=== PATIENT | male | born 1995 | race Caucasian/White ===

== ENCOUNTER 2017-01-23 08:00 | Inpatient (IN) | payer BC, OTHER ==
[~2017-01-23] VITALS: Ht 182.9 cm; Wt 72.6 kg
[2017-01-23 08:00] VITALS: BP 145/89
--- NOTE | 2017-01-23 08:00 | NUR ---
INTAKE ASSESSMENT Patient is 21 year old male admitted for BENZO dependence. Patient is alert oriented x4. Patient appears anxious intoxicated, nauseated, Vomited x3, unable to sit still, agitated. Patient denies any history of seizure. Patient reported PMH of anxiety, depression. He denies any family PMH or family history of drug abuse. Educated patient regarding unit protocols and policies, patient verbalized understanding. Will continue with further assessment when patient is up on the unit.
--- NOTE | 2017-01-23 08:27 | NUR ---
ADMISSION NOTE Allergy- SHRIMP Status-Full code Height 6'0" Weight-160 lb PCP-DR. Aguilar Vital Signs- B/P-145/89,HR-70, R-18, TEMP-97.9, SPO2-98%, Pain 0/10 CIWA-9 Patient is a 21 year old male admitted to [facility] to detox center for BENZO dependence under the care of Dr. Guzmán. Patient unable to provide urine at this time. Thorough body and belonging check done by DOWEL SETTING MACHINE OPERATOR. Patient appears anxious and agitated, crying, nauseated, vomiting x2. Patient is cooperative during nursing assessment. Upon admission patient is noted to have a flat affect, appears intoxicated, but cooperative with the admission process. Patient denies chest pain or SOB. Lung sounds clear with no cough noted. Bowel sounds present in all 4 quadrants. BUE and BLE noted WNL with no edema present. Skin check done with no significant findings. Pt reported PMH of anxiety and depression. Pt refused PNA/FLU vaccine. He brought in home medications. Patient denies SI/HI. Pt is AOx4. This is his first time in treatment. Patient reports never having a period of sobriety since he started using drugs. Pt's current s/s of withdrawal are N/V/D, chills, body aches, anxiety, agitation, shakes, hot and cold flashes, inability to sit still. Patient observed to be pacing in the hallways. Patient reported substance abuse history as: 1.XANAX-Pt reported taking Xanax 8mg PO daily for past 3 years. Last used 4mg PO on 01/22/17 at 2200. 2.Marijuana- Patient reported smoking marijuana 1/8 ounce daily for the past 5 years.Last used 1GM 01/23/17 at 0700 prior to admission. Educated patient regarding unit policies and protocols, patient verbalized understanding. Patient oriented to unit by DOWEL SETTING MACHINE OPERATOR. Fall and seizure precautions in place. Safety measures in place, Call light within reach. Will cont to monitor.
[2017-01-23] MEDS ORDERED: MAG HYDROX/AL HYDROX/SIMETH 30 ML LIQUID UDC PO PRN (08:45)
[2017-01-23] MEDS ORDERED: DICYCLOMINE HCL 20 MG TABLET PO PRN (08:45)
[2017-01-23] MEDS ORDERED: THIAMINE HCL 200 MG/2 ML VIAL IM ONE (08:45)
[2017-01-23] MEDS ORDERED: IBUPROFEN 600 MG TABLET PO PRN (08:45)
[2017-01-23] MEDS ORDERED: MIRALAX 17 GM POWD.PACK PO PRN (08:45)
[2017-01-23] MEDS ORDERED: LOPERAMIDE HCL 2 MG CAPSULE PO PRN ×2 (08:45)
[2017-01-23] MEDS ORDERED: MAGNESIUM HYDROXIDE 30 ML LIQUID UDC PO PRN (08:45)
[2017-01-23] MEDS ORDERED: IV NS 1000 ML 1,000 ML IV PRN (08:45)
[2017-01-23] MEDS ORDERED: CLONIDINE HCL 0.1 MG TABLET PO PRN (08:45)
[2017-01-23] MEDS ORDERED: LORAZEPAM 1 MG TABLET PO PRN (08:45)
[2017-01-23] MEDS ORDERED: FOLIC ACID 1 MG TABLET PO SCH (09:00)
[2017-01-23] MEDS ORDERED: THIAMINE HCL 100 MG TABLET PO SCH (09:00)
[2017-01-23] MEDS ORDERED: MULTIVITAMINS,THERAPEUTIC TABLET PO SCH (09:00)
[2017-01-23] MEDS ORDERED: LORAZEPAM 1 MG TABLET PO SCH (09:00)
[2017-01-23] MEDS: ONDANSETRON 4 MG/2 ML VIAL IV PRN ×3 (09:11→22:30)
--- NOTE | 2017-01-23 09:14 | NUR ---
Iv Zofran 4mg IVP given for nausea
--- NOTE | 2017-01-23 09:14 | NUR ---
#22g IV started right forearm NS @ 125cc/hr via pump started. IV patent and running well
--- NOTE | 2017-01-23 09:15 | NUR ---
Pt still with N+V after Zofran IV
[2017-01-23] MEDS ORDERED: OLAN15TA3 PO (09:35)
[2017-01-23] MEDS ORDERED: GABA-534 PO (09:35)
[2017-01-23] MEDS ORDERED: QUET25TA PO (09:35)
[2017-01-23] MEDS ORDERED: FAMO20TA41 PO (09:35)
[2017-01-23] MEDS ORDERED: ONDA4TAB11 PO (09:35)
[2017-01-23] MEDS ORDERED: DIPH1TAB PO (09:35)
[2017-01-23] MEDS ORDERED: PANT40TA4 PO (09:35)
[2017-01-23] MEDS ORDERED: FLUO-119 PO (09:35)
[2017-01-23 09:39] LABS: BASOPHILS # (AUTO) 0.1 K/uL (0.0-8.0); BASOPHILS % (AUTO) 0.4 % (0.0-2.0); EOSINOPHILS % (AUTO) 0.3 % (0.0-7.0); HEMOGLOBIN 14.7 g/dL (12.5-16.3); LYMPHOCYTES # (AUTO) 1.1 K/uL (20.0-40.0); LYMPHOCYTES % (AUTO) 8.9 % (20.5-51.5); MEAN CORPUSCULAR HEMOGLOBIN 31.3 uug (23.8-33.4); MEAN CORPUSCULAR HGB CONC 34 g/dL (32.5-36.3); MEAN CORPUSCULAR VOLUME 91.3 fL (73.0-96.2); MONOCYTES # (AUTO) 0.6 K/uL (2.0-10.0); MONOCYTES % (AUTO) 4.9 % (0.0-11.0); NEUTROPHILS # (AUTO) 10.9 K/uL (1.8-8.9); NEUTROPHILS % (AUTO) 85.5 % (38.5-71.5); PLATELET COUNT (AUTO) 184 K/uL (152-348); RED BLOOD CELL COUNT(AUTO) 4.71 MIL/uL (4.06-5.63); WHITE BLOOD COUNT (AUTO) 12.8 K/uL (3.6-10.2)
[2017-01-23 09:54] LABS: ALANINE AMINOTRANSFERASE 8 U/L (16-63); ALKALINE PHOSPHATASE 64 U/L (50-136); ASPARTATE AMINOTRANSFERASE 15 U/L (15-37); BILIRUBIN,TOTAL 0.3 mg/dL (0.2-1.0); CARBON DIOXIDE 25 mmol/L (21-32); CHLORIDE 101 mmol/L (98-107); CREATININE 1.2 mg/dL (0.6-1.3); GLUCOSE 174 mg/dL (74-106); MAGNESIUM 1.6 mg/dL (1.8-2.4); TOTAL PROTEIN, SERUM 7.2 g/dL (6.4-8.2); UREA NITROGEN, BLOOD 9 mg/dL (7-18)
[2017-01-23 09:58] LABS: ETHANOL < 3 MG/DL (0-0)
--- NOTE | 2017-01-23 11:41 | NUR ---
ONE TIME ZOFRAN 4MG IM Patient reported nausea and observed with vomiting, MD notified. Received new one time order to give Zofran 4mg IM x1. Medication given as ordered. Will cont to monitor and reassess.
[2017-01-23] MEDS ORDERED: ONDANSETRON 4 MG/2 ML VIAL IM ONE (11:45)
[2017-01-23] MEDS: ACETAMINOPHEN 325 MG TABLET PO PRN (11:47)
--- NOTE | 2017-01-23 11:47 | NUR ---
PRN TYLENOL Patient c/o of abdominal pain 05/15, PRN Tylenol 650mg PO given as ordered. Will cont to monitor and reassess.
[2017-01-23 12:00] VITALS: BP 137/66
[2017-01-23] MEDS ORDERED: METOCLOPRAMIDE HCL 10 MG/2 ML VIAL IV PRN (12:00)
--- NOTE | 2017-01-23 12:10 | NUR ---
ZOFRAN IM REASSESSMENT Patient reported Zofran IM was ineffective, pt still noted with vomiting and nauseated. MD notified.
--- NOTE | 2017-01-23 12:17 | NUR ---
TYLENOL REASSESSMENT Upon reassessment pt reported Tylenol was ineffective.
[2017-01-23] MEDS: LORAZEPAM 2 MG/1 ML VIAL IV SCH ×3 (12:24→20:10)
--- NOTE | 2017-01-23 12:30 | NUR ---
Ativan 2mg IVP for anxiety and Reglan 10mg IVP given for persistent vomiting
--- NOTE | 2017-01-23 13:17 | NUR ---
PRN BENTYL PRN Bentyl 20mg PO administered as ordered, pt c/o of abdominal cramps 5/10. Will cont to monitor and reassess.
[2017-01-23] MEDS ORDERED: LORAZEPAM 2 MG/1 ML VIAL IV ONE (13:30)
[2017-01-23] MEDS ORDERED: DICYCLOMINE HCL 20 MG/2 ML AMPUL IM ONE (13:30)
[2017-01-23] MEDS: POTASSIUM CHLORIDE 20 MEQ in IV D5 1/2 NS 1000 ML 1,000 ML IV PRN ×2 (13:49→22:58)
--- NOTE | 2017-01-23 14:00 | NUR ---
IVF changed to D51/2NS w/20MEQ KCL @ 125cc/hr via pump. Ativan 2mg IVP and Bentyl 20mg IM given. Magnesium 1g IVPB started via pump @ 100cc/hr.
[2017-01-23] MEDS: MAGNESIUM SULFATE/D5W 100 ML IV SCH ×2 (14:04→15:01)
[2017-01-23] MEDS ORDERED: PANTOPRAZOLE SODIUM 40 MG VIAL IV ONE (14:15)
--- NOTE | 2017-01-23 14:17 | NUR ---
BENTYL REASSESSMENT Patient reported Bentyl was effective and feeling relief from stomach cramps with pain scale 1/10.
--- NOTE | 2017-01-23 14:28 | NUR ---
Protonix 40mg IVP X1 administered.
[2017-01-23] MEDS: GABAPENTIN 300 MG CAPSULE PO SCH ×2 (15:00→20:11)
--- NOTE | 2017-01-23 15:00 | NUR ---
2nd bag of Magnesium 1 gm started via pump @ 100cc/hr
[2017-01-23 16:00] VITALS: BP 134/90
--- NOTE | 2017-01-23 16:00 | NUR ---
Ativan 2mg IVP given
[2017-01-23 16:22] LABS: *AMPHETAMINE, URINE NEGATIVE (NEGATIVE); *BARBITURATE, URINE NEGATIVE (NEGATIVE); *CANNABINOID, URINE POSITIVE (NEGATIVE); *COCCAINE, URINE NEGATIVE (NEGATIVE); *OPIATE, URINE NEGATIVE (NEGATIVE); *PHENCYCLIDINE SCREEN,URINE NEGATIVE (NEGATIVE)
--- NOTE | 2017-01-23 16:30 | NUR ---
PRN Zofran reassessment PRN Zofran reassessment. PRN Zofran effective. No further episodes of vomiting. Nausea is mostly relieved at this time per pt.
--- NOTE | 2017-01-23 16:30 | NUR ---
GEETA Franco Pt c/o nausea with 2 episodes of vomiting. GEETA Franco IV administered. Addendum: 01/23/17 at 1646 by MIGUEL A PALMA RN Incorrect note time. Ingrisan administered at 1558.
[2017-01-23] MEDS ORDERED: KETOROLAC TROMETHAMINE 15 MG INJ IVP ONE (16:45)
[2017-01-23] MEDS ORDERED: PROMETHAZINE HCL INJ 12.5 MG in IV DEXTROSE 5% 50 ML IV ONE (16:45)
[2017-01-23] MEDS ORDERED: CAPSAICIN 0.075% CREAM 60 GM TUBE TOP SCH (17:00)
[2017-01-23] MEDS ORDERED: PROMETHAZINE HCL 25 MG/1 ML VIAL IM ONE (17:00)
--- NOTE | 2017-01-23 17:15 | NUR ---
Toradol 15mg IVP for pain and Phenergan 25mg IM given
[2017-01-23] MEDS: CAPSAICIN 0.025% CREAM 56.6 GM TUBE TOP SCH (17:38)
[2017-01-23] MEDS: LORAZEPAM 1 MG TABLET PO PRN ×2 (18:11→22:57)
--- NOTE | 2017-01-23 18:11 | NUR ---
PRN ATIVAN 1MG PO Patient noted to be pacing back and forth by the nursing station, anxious, agitated. Patient stated having a panic attack PRN Ativan 1mg PO given as ordered. CIWA score noted 12. Will cont to monitor and reassess the pt.
--- NOTE | 2017-01-23 19:05 | NUR ---
END OF SHIFT Report provided to production shift supervisor nurse. Pt is a 21 yo male [facility] at 0800 for BZD dependence. He is A&O and ambulatory. NKA, full code status, clear liquid diet. PMH of abdominal pain, anxiety, and depression. On admission pt reported using Xanax 8mg per day and marijuana. Ativan taper started today. He has a 22 gauge IV to the right FA with IV fluids running as ordered. IV Mg x2 bags ordered. Second bag currently running IVPB. Pt was experiencing anxiety, nausea, vomiting, and abdominal pain throughout the day. Pt received PRN Zofran IM x1, PRN Zofran IV x2, Reglan IV, Phenergan IV,Toradol IV, Bentyl PO, Bentyl IV, Tylenol, and Ativan 2mg IV x2, Ativan 1mg PO. Vital signs WNL. All safety measures in place, Call light within range. Patient endorsed to night nurse in stable condition.
--- NOTE | 2017-01-23 19:11 | NUR ---
ATIVAN REASSESSMENT CIWA score noted 7, patient noted resting in his room, breathing normal. Patient is less anxious and restless. Patient is able to rest in bed.
--- NOTE | 2017-01-23 19:15 | NUR ---
START OF SHIFT Received 21 year old male patient admitted on 01/23/17 for Xanax and Marijuana dependency. Pt is full code with allergy to shrimp. He reports a PMHx of abdominal pain, anxiety and depression. He reports using Xanax 8 mg daily for 3 years. Last dose was 4 mg on 01/22/17 and Marijuana 1/8th oz daily for 5 years. Last dose was 1 gram on 01/23/17. Pt currently receiving 5 day Ativan taper with IV Ativan d/t abdominal pain and nausea. Pt with left arm IV 22 gauge with D5 1/2 NS in 20 meQ KCL @ 125 mL/hr. IV site patent and flowing well. Per endorsement, pt received PRN Zofran IV, Bentyl, Reglan and Toradol. Pt is alert and oriented x4, anxious, restless and agitated. Safety measures in place. Will continue to monitor.
[2017-01-23] MEDS: ONDANSETRON ODT 4 MG TAB.RAPDIS SL PRN (19:55)
--- NOTE | 2017-01-23 19:55 | NUR ---
PRN ZOFRAN Pt complains of nausea with no episode of vomiting. Pt is restless and is noted with facial grimacing. PRN Zofran SL administered as ordered. Will monitor effectiveness.
[2017-01-23 20:00] VITALS: BP 135/77
[2017-01-23] MEDS: QUETIAPINE FUMARATE 25 MG TABLET PO SCH (20:11)
--- NOTE | 2017-01-23 20:55 | NUR ---
PRN ZOFRAN REASSESSMENT PRN medication ineffective. Pt still complains of nausea.
[2017-01-23] MEDS ORDERED: GABAPENTIN 300 MG CAPSULE PO SCH (21:00)
[2017-01-23] MEDS: KETOROLAC TROMETHAMINE 30 MG INJ IM PRN (22:34)
--- NOTE | 2017-01-23 22:34 | NUR ---
PRN ZOFRAN IV/TORADOL IM Pt still complains of nausea unrelieved by Zofran SL. Pt complains of abdominal pain 11/14. PRN Zofran and Toradol administered as ordered. Will monitor effectiveness.
[2017-01-23] MEDS ORDERED: KETOROLAC TROMETHAMINE 30 MG INJ ONE (22:37)
--- NOTE | 2017-01-23 22:57 | NUR ---
PRN ATIVAN Pt noted with dizziness, increased anxiety, agitation and restlessness. CIWA:11. PRN Ativan 1 mg administered as ordered. Will monitor effectiveness.
--- NOTE | 2017-01-23 23:34 | NUR ---
PRN ZOFRAN IV/TORADOL IM REASSESSMENT PRN medications effective. Pt reports abdominal pain decreased to 6/10 and nausea is decreased. Will continue to monitor.
[2017-01-24] VITALS: BP 124/64
[2017-01-24] MEDS: diphenhydrAMINE 50 MG CAPSULE PO PRN ×2 (00:46→21:54)
--- NOTE | 2017-01-24 00:46 | NUR ---
PRN BENADRYL Pt complains of insomnia and inability to sleep. Pt noted to be pacing hallway. PRN Benadryl administered as ordered. Will monitor effectiveness.
--- NOTE | 2017-01-24 01:46 | NUR ---
PRN BENADRYL REASSESSMENT PRN medication ineffective. Pt still awake and unable to fall asleep.
[2017-01-24] MEDS: ONDANSETRON ODT 4 MG TAB.RAPDIS SL PRN ×2 (02:05→16:36)
--- NOTE | 2017-01-24 02:05 | NUR ---
PRN ZOFRAN SL Pt complains of nausea with no episode of vomiting. PRN Zofran SL administered as ordered. Will monitor effectiveness.
--- NOTE | 2017-01-24 03:05 | NUR ---
PRN ZOFRAN REASSESSMENT PRN medication somewhat effective. Pt still reports nausea but reports " I feel a little better"
[2017-01-24 04:00] VITALS: BP 121/72
[2017-01-24] MEDS: LORAZEPAM 1 MG TABLET PO PRN (04:14)
--- NOTE | 2017-01-24 04:14 | NUR ---
PRN ATIVAN Pt is restless, anxious and agitated. Noted to be pacing the hallway unable to sleep d/t anxiety. CIWA:8. PRN Ativan 1 mg administered as ordered. Will monitor effectiveness.
--- NOTE | 2017-01-24 05:14 | NUR ---
PRN ATIVAN REASSESSMENT PRN medication ineffective. Pt still complains of anxiety and restlessness. Will continue to monitor.
[2017-01-24] MEDS: ACETAMINOPHEN 325 MG TABLET PO PRN (06:02)
--- NOTE | 2017-01-24 06:02 | NUR ---
PRN TYLENOL Pt complains of abdominal pain 09/14. PRN Tylenol administered as ordered. Will monitor effectiveness.
[2017-01-24 06:06] LABS: HEPATITIS B SURFACE AG Negative (Negative)
--- NOTE | 2017-01-24 07:02 | NUR ---
PRN TYLENOL REASSESSMENT PRN medication somewhat effective. Pt still complains of abdominal pain 06/14. Will endorse.
--- NOTE | 2017-01-24 07:19 | NUR ---
END OF SHIFT Pt is a 21 year old male patient admitted on 01/23/17 for Xanax and Marijuana dependency. Pt is full code with allergy to shrimp. He reports a PMHx of abdominal pain, anxiety and depression. Pt continues on a 5 day Ativan taper and is scheduled to start Ativan taper PO. Pt with left arm IV 22 gauge with D5 1/2 NS in 20 meQ KCL @ 125 mL/hr, patent and flowing well. He received several PRN medications and had complaints of nausea, abdominal pain, and anxiety. He slept a total of 0 hrs, Intake: 1055mL, Void: x4, BM:0, CIWA:8. Pt remains alert and oriented x4, anxious and restless. Safety measures in place. Endorsed to AM shift.
--- NOTE | 2017-01-24 07:31 | NUR ---
START OF SHIFT Pt 21 y/o male admitted for marijuana/ xanax dependence. Pt received walking around in the hallways. Pt alert and oriented to name, place, and time. Perrla. Skin warm and moist to touch. Respirations even and unlabored. Bilateral hand tremors noted. Pt with peripheral IV on right forearm in place, intact and patent, with no redness and is not hot to touch, and is infusing D5 1/2 NS with K+20 mEq @ 125 mL/hr and is tolerating well. It was reported that pt did not sleep last night and was just walking around the hallways. No distress noted at this time.
[2017-01-24 08:00] VITALS: BP 130/75
[2017-01-24] MEDS: ONDANSETRON 4 MG/2 ML VIAL IV PRN ×3 (08:14→23:22)
[2017-01-24] MEDS: KETOROLAC TROMETHAMINE 30 MG INJ IM PRN ×2 (08:17→23:29)
--- NOTE | 2017-01-24 08:17 | NUR ---
PRN Pt states has abd pain 8/10. Toradol IM prn per MD order given and tolerated well.
--- NOTE | 2017-01-24 08:17 | NUR ---
ZOSTRIX Pt stated the zostrix applied to his abd made his skin turn red in color, but denied any puritis. Bharat was held and aware.
--- NOTE | 2017-01-24 08:17 | NUR ---
PPD Pt refused PPD.
--- NOTE | 2017-01-24 08:17 | NUR ---
PRN Pt states feels very nauseated. Zofran IV prn per MD order given and tolerated well.
[2017-01-24 08:18] LABS: BASOPHILS # (AUTO) 0.1 K/uL (0.0-8.0); BASOPHILS % (AUTO) 0.7 % (0.0-2.0); EOSINOPHILS # (AUTO) 0.2 K/uL (0.0-0.7); EOSINOPHILS % (AUTO) 1.6 % (0.0-7.0); HEMATOCRIT 41.8 % (36.7-47.1); HEMOGLOBIN 14.4 g/dL (12.5-16.3); LYMPHOCYTES # (AUTO) 2.7 K/uL (20.0-40.0); LYMPHOCYTES % (AUTO) 28.6 % (20.5-51.5); MEAN CORPUSCULAR HEMOGLOBIN 31.7 uug (23.8-33.4); MEAN CORPUSCULAR HGB CONC 34 g/dL (32.5-36.3); MEAN CORPUSCULAR VOLUME 92.1 fL (73.0-96.2); MONOCYTES # (AUTO) 1.1 K/uL (2.0-10.0); MONOCYTES % (AUTO) 11.2 % (0.0-11.0); NEUTROPHILS # (AUTO) 5.5 K/uL (1.8-8.9); NEUTROPHILS % (AUTO) 57.9 % (38.5-71.5); PLATELET COUNT (AUTO) 193 K/uL (152-348); RED BLOOD CELL COUNT(AUTO) 4.53 MIL/uL (4.06-5.63); WHITE BLOOD COUNT (AUTO) 9.5 K/uL (3.6-10.2)
[2017-01-24] MEDS: LORAZEPAM 1 MG TABLET PO SCH ×3 (08:28→20:28)
[2017-01-24] MEDS: GABAPENTIN 300 MG CAPSULE PO SCH ×3 (08:28→20:29)
[2017-01-24] MEDS: PANTOPRAZOLE 40MG PO SCH (08:29)
[2017-01-24] MEDS ORDERED: TUBERCULIN,PURIF.PROT.DERIV. 5 TU/0.1 ML TEST ID ONE (09:00)
[2017-01-24] MEDS: CAPSAICIN 0.025% CREAM 56.6 GM TUBE TOP SCH (09:00)
--- NOTE | 2017-01-24 09:17 | NUR ---
PRN OLGA LIDIA Pt states pain 05/15.
--- NOTE | 2017-01-24 09:17 | NUR ---
PRN EVAL Pt states does not feel nauseated at this time.
[2017-01-24 09:34] LABS: PHOSPHOROUS 3.2 mg/dL (2.5-4.9); POTASSIUM 3.7 mmol/L (3.5-5.1)
[2017-01-24 12:00] VITALS: BP 125/76
[2017-01-24] MEDS ORDERED: LORAZEPAM 2 MG/1 ML VIAL IV ONE (12:00)
--- NOTE | 2017-01-24 12:00 | NUR ---
ONE TIME Pt was seen by MD with new order for ativan 2 mg IV x1 dose, noted and carried out. Pt with ciwa=10.
[2017-01-24] MEDS: IV D5 1/2 NS 1000 ML 1,000 ML IV PRN (12:09)
--- NOTE | 2017-01-24 13:00 | NUR ---
ONE TIME EVAL Pt with ciwa=4.
[2017-01-24] MEDS: DICYCLOMINE HCL 20 MG TABLET PO SCH ×2 (14:21→20:30)
--- NOTE | 2017-01-24 14:26 | NUR ---
PRN Pt states feels nauseous. Pt requesting to have zofran IV. Zofran IV prn per MD order given and tolerated well.
--- NOTE | 2017-01-24 14:52 | NUR ---
Therapist prompted client about group times. Client stated he will attend all groups today.
--- NOTE | 2017-01-24 15:26 | NUR ---
PRN EVAL Pt states does not feel nauseated at this time.
[2017-01-24 16:00] VITALS: BP 109/78
--- NOTE | 2017-01-24 16:39 | NUR ---
PRN Pt states feels nauseated. Zofran odt sl prn per MD given and tolerated well.
--- NOTE | 2017-01-24 16:39 | NUR ---
PRN Pt states has heartburn. Maloox po prn per MD order given and tolerated well.
--- NOTE | 2017-01-24 17:39 | NUR ---
PRN EVAL Pt denies any nausea at this time. No reports of vomit episode.
--- NOTE | 2017-01-24 17:39 | NUR ---
GEETA DUGGAN Pt denies any heartburn at this time.
[2017-01-24] MEDS: FLUOXETINE HCL 10 MG CAPSULE PO SCH (18:09)
--- NOTE | 2017-01-24 18:15 | NUR ---
END OF SHIFT Pt 21 y/o male admitted for marijuana/ xanax dependence. Pt alert and oriented to name, place, and time. Perrla. Skin warm and moist to touch. Respirations even and unlabored. Pt with bilateral hand tremors noted slightly. Pt states had 1 vomit episode this morning, unwitnessed. Pt with peripheral IV on right forearm intact and in place, patent, with no redness and is not hot to touch, infusing D5 ns @ 125 mL/ hr and is tolerating well. Pt attended group activity. Pt medication compliant and tolerated well. No ASE noted. Pt was seen by MD today. Bed on lowest position with side rails x2 up for safety. Call light within reach. No distress noted at this time.
[2017-01-24] MEDS: QUETIAPINE FUMARATE 25 MG TABLET PO SCH ×2 (18:23→20:29)
--- NOTE | 2017-01-24 19:15 | NUR ---
START OF SHIFT Received 21 year old male patient admitted on 01/23/17 for Xanax and Marijuana dependency. Pt is full code with allergy to shrimp. He reports a PMHx of abdominal pain, anxiety and depression. He reports using Xanax 8 mg daily for 3 years. Last dose was 4 mg on 01/22/17 and Marijuana 1/8th oz daily for 5 years. Last dose was 1 gram on 01/23/17. Pt currently receiving 5 day Ativan taper and tolerating well. Pt with left arm IV 22 gauge with D5 1/2 NS running @ 125 mL/hr. IV site patent and flowing well. Per endorsement, pt received PRN Zofran IV x2, and a one time dose of Ativan. He refused his TB test. Pt is alert and oriented x4, anxious, and restless. Safety measures in place. Will continue to monitor.
[2017-01-24 20:00] VITALS: BP 145/66
[2017-01-24] MEDS: OLANZAPINE 5 MG TABLET PO SCH (20:31)
--- NOTE | 2017-01-24 21:54 | NUR ---
PRN BENADRYL Pt complains of insomnia and reports he is unable to fall asleep. PRN Benadryl administered as ordered. Will monitor effectiveness.
--- NOTE | 2017-01-24 22:25 | NUR ---
BEHAVIORAL NOTE Per ORDER PROCESSING CLERK, pt was noted to be in his room asking for a flashlight to look for his phone, and was reporting hallucinations. ORDER PROCESSING CLERK stated " there is no phone." Pt then responded " I know." Reoriented pt to time, person, place and situation. Will continue to monitor.
--- NOTE | 2017-01-24 22:54 | NUR ---
PRN BENADRYL REASSESSMENT PRN medication ineffective. Pt still awake in his room noted to be agitated.
--- NOTE | 2017-01-24 23:10 | NUR ---
MD Communication: Patient reports agitation and severe anxiety. Dr Guzmán contacted and new order received for Ativan 2mg PO x1 now.
[2017-01-24] MEDS ORDERED: LORAZEPAM 1 MG TABLET PO ONE (23:15)
--- NOTE | 2017-01-24 23:29 | NUR ---
PRN TORADOL, ZOFRAN IV, ONE TIME ATIVAN Pt complains of upper abdominal pain 9/10, and nausea. Pt is also noted to be moderately anxious, restless and agitated. PRN Toradol IM, Zofran IV and one time Ativan 2 mg administered as ordered. Encouraged pt to stay in bed and try to sleep d/t sedating effects of medications given. Pt verbalized understanding. Will monitor.
--- NOTE | 2017-01-24 23:40 | NUR ---
Behavioral Note/Crisis Evaluation: Patient noted to be drowsy and unsteady on feet, but refusing to stay in bed to try and sleep. Patient educated on his high risk for falls d/t sedation and IV access/pump. Charge Nurse and LITERACY TUTOR Rn Palliative requested that patient stay in bed for safety. Patient became argumentative, agitated, verbally aggressive using profanity, and loud voice. Patient verbalized wanting "to end it all" and being "extremely depressed". Chucho from Crisis Team was contacted, along with , for further evaluation.
[2017-01-25] VITALS (7 sets, daily range): BP systolic 98–141; BP diastolic 52–88
--- NOTE | 2017-01-25 00:29 | NUR ---
REASSESSMENT PRN Toradol and Zofran effective. Pt reports decrease in abdominal pain and nausea. One time Ativan 2 mg ineffective. Pt still anxious, agitated and unable to fall asleep. Encouraged pt to lay down in bed and try to sleep. CIWA:8. Will monitor.
[2017-01-25] MEDS: IV D5 1/2 NS 1000 ML 1,000 ML IV PRN (06:57)
--- NOTE | 2017-01-25 07:10 | NUR ---
Start of Shift Endorsement received from nightshift nurse. Pt is a 21 y/o male admitted for Xanax dependence. Pt has been placed on a Modified Ativan taper. PT is moderately withdrawing at this time AEB CIWA 5. PT received PRN Benadryl, Toradol, Ativan 2mg and Zofran. Pt reported suicidal ideations during nightshift, crises team was called and pt was evaluated and cleared by Chucho. Pt has slept 3 hours during the night. Pt appears to be sleeping at this time. Breathing even and unlabored. Responsive to name and touch. VS WNL. Full code. Pt is in STABLE condition at this time. Remains compliant with medication and diet regimen. All needs have been met, All safety measures in place per hospital policy. Bed in lowest position, side rails up x2, call-light within reach. Will continue to monitor
--- NOTE | 2017-01-25 07:11 | NUR ---
END OF SHIFT Pt is a 21 year old male patient admitted on 01/23/17 for Xanax and Marijuana dependency. Pt is full code with allergy to shrimp. He reports a PMHx of abdominal pain, anxiety and depression. He continues on a 5 day Ativan taper and tolerating well. Pt with left arm IV 22 gauge with D5 1/2 NS running @ 125 mL/hr. IV site patent and flowing well. He received PRN Toradol, Zofran IV, and one time dose of Ativan 2 mg. He verbalized " wanting to end it all" Crisis team was called, he was evaluated by Chucho at 0120. Per Chucho, pt was not a danger to himself or others. Pt slept 1 hr, Intake: 1350mL, Void: x3, BM:x1, CIWA:5. Pt remains alert and oriented x4, anxious, and restless. Safety measures in place. Will endorse to AM shift.
[2017-01-25] MEDS: PANTOPRAZOLE 40MG PO SCH ×2 (09:00→11:49)
[2017-01-25] MEDS ORDERED: LORAZEPAM 1 MG TABLET PO SCH (09:00)
[2017-01-25] MEDS: LORAZEPAM 1 MG TABLET PO SCH ×4 (09:00→20:08)
[2017-01-25] MEDS: GABAPENTIN 300 MG CAPSULE PO SCH ×4 (09:00→20:08)
[2017-01-25] MEDS: FLUOXETINE HCL 10 MG CAPSULE PO SCH ×2 (09:00→11:49)
[2017-01-25] MEDS: DICYCLOMINE HCL 20 MG TABLET PO SCH ×4 (09:00→20:08)
--- NOTE | 2017-01-25 12:30 | NUR ---
IV Discontinued IV has been discontinued per pt request. Dr. Guzmán has been notified. PT is tolerating oral medications, food and fluids.
[2017-01-25] MEDS: ONDANSETRON ODT 4 MG TAB.RAPDIS SL PRN ×2 (15:14→21:37)
[2017-01-25] MEDS: QUETIAPINE FUMARATE 25 MG TABLET PO SCH ×2 (18:02→20:08)
--- NOTE | 2017-01-25 19:09 | NUR ---
End of Shift Endorsement given to nightshift nurse. Pt is a 21 y/o male admitted for Xanax dependence. Pt has been placed on a Modified Ativan taper. PT is moderately withdrawing at this time AEB CIWA 5 at 1600. PT received PRN Zofran. Removed IV per Dr. Guzmán and per patient refusal. Educated pt on diet and medication regimen. Encouraged pt to participate in groups. Encouraged pt to drink more water instead of coffee and tea. Intake: 1500ml, Void x3, BM x0. VS WNL. Full code. Pt is in STABLE condition at this time. Remains compliant with medication and diet regimen. All needs have been met, All safety measures in place per hospital policy. Bed in lowest position, side rails up x2, call-light within reach. Will continue to monitor
--- NOTE | 2017-01-25 19:15 | NUR ---
Start of Shift Note: Patient is a 21 y.o male admitted on 01/23/17 for Benzo dependence. Patient reported taking Xanax 8mg daily for 3 years. Patient has PMHx of Anxiety and Depression. Patient is on a soft diet with allergies to Shrimp. Full Code status noted. Patient is on a 5-day modified Ativan taper and tolerating well. Last CIWA is 1. Patient received PRN Zofran during day shift and was effective. Patient is alert & oriented x4. No shortness of breath noted. Respiration even & unlabored. Abdomen soft & non-distended. Patient complained of 6/10 abdominal pain & nausea. Patient appears slightly anxious and agitated. Hand tremors felt but not seen. Patient denies any hallucinations. Safety measures in place. Bed locked in lowest position. Both side rails up. Call light within pt's reach. Will continue to monitor patient.
[2017-01-25] MEDS: OLANZAPINE 5 MG TABLET PO SCH (20:08)
--- NOTE | 2017-01-25 21:37 | NUR ---
PRN Zofran Patient complained of nausea. No episode of vomiting noted. PRN Zofran SL administered as ordered. Will continue to monitor patient.
[2017-01-25] MEDS ORDERED: HYDROXYZINE PAMOATE 25 MG CAPSULE PO PRN (21:45)
--- NOTE | 2017-01-25 21:57 | NUR ---
PRN Vistaril Patient complains of anxiety. Non-pharmacological intervention & relaxation technique provided but not effective. PRN Vistaril administered as ordered. Will continue to monitor patient.
[2017-01-25] MEDS ORDERED: HYDROXYZINE PAMOATE 25 MG CAPSULE ONE (22:12)
--- NOTE | 2017-01-25 22:37 | NUR ---
PRN Reassessment Patient verbalized relief from nausea. Patient denies nausea at this time. PRN medication effective. Will continue to monitor patient.
--- NOTE | 2017-01-25 22:57 | NUR ---
PRN Reassessment Patient verbalized decreased in anxiety. PRN medication effective. Will continue to monitor patient.
--- NOTE | 2017-01-25 23:15 | NUR ---
RN NOTE Patient verbalized feeling of depression. Pt stated "I feel depressed that I just want to crawl in a corner and be forgotten." Pt wanted to talk to a therapist. Explained to patient that there is no on-call therapist at the moment and that he can talk to the therapist in the morning. Pt verbalized understanding. Allowed patient to express feelings. Patient was ask if he has any suicidal ideation. Patient denies any SI at this time. Will continue to monitor patient.
--- NOTE | 2017-01-26 07:18 | NUR ---
End of Shift Note: Patient is a 21 y.o male admitted for Opiate and Benzo dependence. Patient continues on his Ativan taper and tolerating well. No adverse reactions noted. Continue to monitor symptoms of withdrawal. Vitals monitored closely and noted within normal limits. Patient remained compliant with medications and treatment. Last COWS 5. Pt received PRN Vistaril for anxiety and Zofran for nausea and was effective. Patient had expressed feelings of depression last night and wanted to talk to a therapist. Charge nurse was aware and will endorse pt to morning shift. Patient remained stable throughout my shift. Patient shows no s/s of distress. Patient still asleep in bed. Patient slept for a total of 5 hours. Fluid intake:1110ml. Encourage pt to increase fluid intake. Voided 4x with no bowel movement. All needs attended & met. Safety measures in place. Will continue to monitor patient.
--- NOTE | 2017-01-26 07:20 | NUR ---
Start of Shift Endorsement received from nightshift nurse. Pt is a 21 y/o male admitted for Xanax dependence. Pt has been placed on a Modified Ativan taper. PT is moderately withdrawing at this time AEB CIWA 5 at 1999. PT received PRN Vistaril and Zofran. Pt reports sleeping 5 hours during the night. Pt is alert and oriented x4. VS WNL. Full code. Pt is in STABLE condition at this time. Remains compliant with medication and diet regimen. All needs have been met, All safety measures in place per hospital policy. Bed in lowest position, side rails up x2, call-light within reach. Will continue to monitor
[2017-01-26 08:00] VITALS: BP 111/62
[2017-01-26] MEDS ORDERED: LORAZEPAM 1 MG TABLET PO SCH (09:00)
[2017-01-26] MEDS: DICYCLOMINE HCL 20 MG TABLET PO SCH ×3 (09:03→21:19)
[2017-01-26] MEDS: FLUOXETINE HCL 10 MG CAPSULE PO SCH (09:03)
[2017-01-26] MEDS: PANTOPRAZOLE 40MG PO SCH (09:03)
[2017-01-26] MEDS: GABAPENTIN 300 MG CAPSULE PO SCH ×3 (09:03→21:19)
[2017-01-26] MEDS: LORAZEPAM 1 MG TABLET PO SCH ×2 (09:04→21:19)
--- NOTE | 2017-01-26 09:39 | NUR ---
Therapist prompted client to attend group today. Client agreed to attend.
[2017-01-26 12:00] VITALS: BP 125/80
[2017-01-26 16:00] VITALS: BP 111/62
[2017-01-26] MEDS: QUETIAPINE FUMARATE 25 MG TABLET PO SCH ×2 (18:23→21:19)
--- NOTE | 2017-01-26 18:48 | NUR ---
End of Shift Endorsement given to nightshift nurse. Pt is a 21 y/o male admitted for Xanax dependence. Pt has been placed on a Modified Ativan taper. PT is mildly withdrawing at this time AEB CIWA 4 at 1600. PT did not receive any PRN medications. Educated pt on deep breathing technique. Encouraged pt to attend group. Pt participated in groups and activities. Encouraged pt to drink more water . Intake: 2440ml, Void x5, BM x1. VS WNL. Full code. Pt is in STABLE condition at this time. Remains compliant with medication and diet regimen. All needs have been met, All safety measures in place per hospital policy. Bed in lowest position, side rails up x2, call-light within reach. Will continue to monitor
[2017-01-26 20:00] VITALS: BP 136/89
--- NOTE | 2017-01-26 20:00 | NUR ---
End of Shift Pt is a 21 year old male admitted for Benzo dependence, placed on modified Ativan taper. Pt reported using Xanax 8mg/daily and Marijuana /8/daily. PMH: Abdominal pain, anxiety and depression. Pt reports allergies to shrimp, regular diet, fall/seizure precautions and full code. Upon assessment, pt reports feeling anxious, mildly nauseous, stomach cramping, body aches, respirations even/unlabored, denies SOB/chest pain, denies v/d, medications due. Safety measures in place, call light within reach, side rails up x2, bed locked and in low position. Will continue to monitor. Addendum: 01/26/17 at 2340 by CHARLENE GRULLON RN Start of Shift
--- NOTE | 2017-01-26 20:00 | NUR ---
Start of Shift Pt is a 21 year old male admitted for Benzo dependence, placed on modified Ativan taper. Pt reported using Xanax 8mg/daily and Marijuana 1/8/daily. PMH: Abdominal pain, anxiety and depression. Pt reports allergies to shrimp, regular diet, fall/seizure precautions and full code. Upon assessment, pt reports feeling anxious, mildly nauseous, stomach cramping, body aches, respirations even/unlabored, denies SOB/chest pain, denies v/d, medications due. Safety measures in place, call light within reach, side rails up x2, bed locked and in low position. Will continue to monitor.
[2017-01-26] MEDS: OLANZAPINE 5 MG TABLET PO SCH (21:19)
[2017-01-27] VITALS: BP 140/88
--- NOTE | 2017-01-27 04:00 | NUR ---
OLUWA deferred d/t pt sleeping, to assess while pt is awake as ordered. Pt refused to be woken up for 0[address], will continue to monitor.
--- NOTE | 2017-01-27 06:55 | NUR ---
End of Shift Pt is a 21 year old male admitted for Benzo dependence, placed on modified Ativan taper. Pt reported using Xanax 8mg/daily and Marijuana 1/8/daily. PMH: Abdominal pain, anxiety and depression. Pt reports allergies to shrimp, regular diet, fall/seizure precautions and full code. During shift, pt reported feeling anxious, mildly nauseous, stomach cramping, body aches scheduled taper medications administered, effective in management of s/s of withdrawal as reported per pt, CIWA 4. No PRN medications administered during shift. Pt slept for 5 hours, intake of 1855 ml PO, voids x6 and stool x1. Safety measures in place, call light within reach, side rails up x2, bed locked and in low position. Endorsed to day shift nurse.
--- NOTE | 2017-01-27 07:04 | NUR ---
Start of shift note; Received report from night nurse. Patient is a 21 year old male admitted on 01/23/17 for Benzodiazepine dependence. Patient reported history of abdominal pain, anxiety, depression. Patient was placed on modified Ativan taper, tolerating well. Patient's last is CIWA 4 per endorsement. Patient's slept for 5 hours. Patient is on fall and seizure precaution. All safety measures secured. Will continue to monitor patient.
[2017-01-27 08:00] VITALS: BP 119/61
[2017-01-27] MEDS ORDERED: LORAZEPAM 1 MG TABLET PO SCH ×2 (09:00)
[2017-01-27] MEDS ORDERED: FLUOXETINE HCL 10 MG CAPSULE PO SCH (09:00)
[2017-01-27] MEDS: PANTOPRAZOLE 40MG PO SCH (09:11)
[2017-01-27] MEDS: DICYCLOMINE HCL 20 MG TABLET PO SCH ×3 (09:11→21:25)
[2017-01-27] MEDS: FLUOXETINE HCL 20 MG CAPSULE PO SCH (09:11)
[2017-01-27] MEDS: GABAPENTIN 300 MG CAPSULE PO SCH ×3 (09:11→21:24)
[2017-01-27 12:00] VITALS: BP 134/83
[2017-01-27] MEDS ORDERED: ONDA4TAB11 SL (14:49)
[2017-01-27] MEDS ORDERED: GABA-534 PO (14:49)
[2017-01-27] MEDS ORDERED: OLAN5TAB3 PO (14:49)
[2017-01-27] MEDS ORDERED: QUET25TA PO (14:49)
[2017-01-27] MEDS ORDERED: FLUO-120 PO (14:49)
[2017-01-27] MEDS ORDERED: DICY20TA28 PO (14:49)
[2017-01-27] MEDS ORDERED: HYDR-3895 PO (14:49)
[2017-01-27] MEDS ORDERED: DIPH50CA37 PO (14:49)
[2017-01-27] MEDS ORDERED: IBUP-1955 PO (14:49)
[2017-01-27 16:00] VITALS: BP 130/84
[2017-01-27] MEDS: QUETIAPINE FUMARATE 25 MG TABLET PO SCH ×2 (17:32→21:24)
--- NOTE | 2017-01-27 17:58 | NUR ---
End of shift note; Patient is AOX4. Patient is a 21 year old male admitted on 01/23/17 for Benzodiazepine dependence. Patient reported history of abdominal pain, anxiety, depression. Patient was placed on modified Ativan taper, tolerating well. Patient's last CIWA is 2 at 1600. Patient remained compliant with treatment plan and medication regime. Medications were effective in reducing withdrawal symptoms. Patient is medically cleared for discharge tomorrow. All safety measures secured. Met all needs.
--- NOTE | 2017-01-27 19:15 | NUR ---
START OF SHIFT NOTE : Pt is a 21 year old male admitted for Benzo dependence, placed on modified Ativan taper. PMH: Abdominal pain, anxiety and depression. Pt reports allergies to shrimp, regular diet, fall/seizure precautions and full code. Pt. reports increased level of anxiety, mild body aches. Pt. is alert, oriented x3, friendly and cooperative. Pt. will be D/C tomorrow. Safety measures in place, call light within reach, side rails up x2, bed locked and in low position. Will continue to monitor.
[2017-01-27 20:00] VITALS: BP 144/94
[2017-01-27] MEDS ORDERED: OLANZAPINE 5 MG TABLET PO SCH (21:00)
--- NOTE | 2017-01-28 | NUR ---
PRN TYLENOL Olzx=532.6 PRN TYLENOL given as ordered. Safety measures in place : bed on lowest position with side rails x2 up for safety, call light within reach. Will continue to monitor closely and offer help.
--- NOTE | 2017-01-28 01:00 | NUR ---
RE-ASSESSMENT TYLENOL Pt. is sleeping, RR=16 unlabored and even. Safety measures in place : bed on lowest position with side rails x2 up for safety, call light within reach. Will continue to monitor closely and offer help.
[2017-01-28] MEDS: ACETAMINOPHEN 325 MG TABLET PO PRN ×2 (01:33→09:10)
[2017-01-28 04:00] VITALS: BP 127/74
--- NOTE | 2017-01-28 06:35 | NUR ---
END OF SHIFT NOTE : Pt is a 21 year old male admitted for Benzo dependence, placed on modified Ativan taper. PMH: Abdominal pain, anxiety and depression. Pt reports allergies to shrimp, regular diet, fall/seizure precautions and full code. Pt remains compliant with the treatment plan, will be D/C today. PRN TYLENOL given during my shift (GRSI=202.6 at 00:00). V/S remain WNL. RR=16, even and unlabored, lungs clear upon auscultation, abdomen soft and non- distended. Pt denies nausea, vomiting and diarrhea. CIWA taken when pt. was alert during the night, LAST CIWA=2 at 0400 , BKEKUE=564 ml, voided x3 , slept 8 hours. Safety measures in place : bed on lowest position with side rails x2 up for safety, call light within reach. Will continue to monitor closely and offer help.
--- NOTE | 2017-01-28 07:48 | NUR ---
Start of shift note; Received report from night nurse. Patient is a 21 year old male admitted on 01/23/17 for Benzodiazepine dependence. Patient reported history of abdominal pain, anxiety, depression. Patient was placed on modified Ativan taper, tolerating well. Patient's last is CIWA 2 per endorsement. Patient's slept for 8 hours. Patient is medically cleared for discharge today. Last oral temperature is 99.0, patient is afebrile. Patient is on fall and seizure precaution. All safety measures secured. Will continue to monitor patient.
[2017-01-28 08:00] VITALS: BP 110/60
[2017-01-28] MEDS: GABAPENTIN 300 MG CAPSULE PO SCH (09:09)
[2017-01-28] MEDS: ONDANSETRON ODT 4 MG TAB.RAPDIS SL PRN (09:09)
[2017-01-28] MEDS: DICYCLOMINE HCL 20 MG TABLET PO SCH (09:09)
[2017-01-28] MEDS: FLUOXETINE HCL 20 MG CAPSULE PO SCH (09:10)
[2017-01-28] MEDS: PANTOPRAZOLE 40MG PO SCH (09:10)
--- NOTE | 2017-01-28 11:42 | NUR ---
Discharge note; Patient is medically cleared for discharge. Patient is afebrile. All valuables, belongings and medications given to patient. Patient left the hospital at exactly 1142 on 01/28/17. Patient left in a stable condition. Met all needs.
== END 2017-01-28 11:42 | disposition other institution (70) | DRG 895 ==
LOC: SRC 08:03
PROVIDERS: ADMIT Internal Medicine; ATTEND Internal Medicine
PROC: HZ2ZZZZ Detoxification Services for Substance Abuse Treatment (ICD-10-PCS; principal; 2017-01-23)
PROC: HZ41ZZZ Group Counseling for Substance Abuse Treatment, Behavioral (ICD-10-PCS; 2017-01-24)
PROC: HZ31ZZZ Individual Counseling for Substance Abuse Treatment, Behavioral (ICD-10-PCS; 2017-01-26)
DX: F13.230 Sedative, hypnotic or anxiolytic dependence with withdrawal, uncomplicated (principal); R45.851 Suicidal ideations; I15.9 Secondary hypertension, unspecified; E83.42 Hypomagnesemia; F12.288 Cannabis dependence with other cannabis-induced disorder; F31.60 Bipolar disorder, current episode mixed, unspecified; E86.0 Dehydration; R11.2 Nausea with vomiting, unspecified; T40.7X5A Adverse effect of cannabis (derivatives), initial encounter; Y92.89 Other specified places as the place of occurrence of the external cause; F41.9 Anxiety disorder, unspecified; Z79.899 Other long term (current) drug therapy; E87.6 Hypokalemia; D72.829 Elevated white blood cell count, unspecified
CPT/HCPCS: 36415; 70030-TC; 80307; 80349; 83735; 84100; 85025; 86580; 86592; 86705; 86803; 87340; 87806; 93005; A9150; C9113; G0480; J0500; J1885; J2060; J2405; J2550; J2765; J3475; J3480; J3490; J7030; Q0162; Q0163